=== PATIENT | female | born 1995 | race Caucasian/White ===

== ENCOUNTER 2020-06-11 09:48 | Emergency (ER) | payer OTHER ==
[~2020-06-11] VITALS: Ht 160 cm; Wt 57.5 kg
[2020-06-11 10:33] LABS: BASO % 0.4 % (0.0-1.0); EOS # 0.1 10^3/uL (0.0-0.5); EOS % 1.6 % (0.0-3.0); HEMATOCRIT 44.8 % (36.0-47.0); HEMOGLOBIN 14.3 g/dl (12.0-15.5); LYMPH # 1.6 10^3/uL (1.5-5.0); LYMPH % 30.6 % (24.0-44.0); MEAN CORPUSCULAR HEMOGLOBIN 28.1 pg (27.0-33.0); MEAN CORPUSCULAR HGB CONC 31.9 g/dl (32.0-36.5); MONO # 0.3 10^3/uL (0.0-0.8); MONO % 5.9 % (2.0-8.0); NEUTROPHILS # 3.1 10^3/uL (1.5-8.5); NEUTROPHILS % 61.1 % (36.0-66.0); PLATELET COUNT, AUTOMATED 169 10^3/uL (150-450); RED BLOOD COUNT 5.09 10^6/uL (4.00-5.40); WHITE BLOOD COUNT 5.1 10^3/uL (4.0-10.0)
--- NOTE | 2020-06-11 11:35 | REP ---
INDICATION: VAGINAL BLEEDING. COMPARISON: None. TECHNIQUE: Real-time sonographic evaluation of pelvis performed utilizing transabdominal and endovaginal technique. FINDINGS: Uterus measures 8.4 x 4.2 x 4.6 cm. Endometrial thickness is 11 mm. There is no endometrial fluid collection or gestational sac present. The ovaries are normal in size and echotexture, right ovary measuring 4.5 x 1.6 x 2.2 cm and left ovary 3.0 x 1.7 x 2.0 cm. There is no evidence of ovarian torsion with duplex Doppler evaluation. Along the margin of the left ovary there is a rounded nodular structure measuring 1.4 x 0.7 x 1.1 cm. Ectopic is a possibility. There is no other evidence of adnexal mass or free fluid. IMPRESSION: Endometrial thickness 11 mm with no fluid or gestational sac seen in the endometrial canal. Nodular structure left adnexa along the margin of the left ovary has a maximum diameter of 1.4 cm. I cannot exclude ectopic . Differential diagnosis would include very early intrauterine , missed AB, or ectopic . Suggest correlation with serial quantitative beta HCG values, and follow-up ultrasound if necessary. <Electronically signed by José Miguel Coles > 06/11/20 [id number]
[2020-06-11] MEDS ORDERED: RHOGAM 300 MCG (1500 IU) INJ (J2790) IM ONE (12:10)
[2020-06-11 12:19] LABS: APPEARANCE, URINE MANUAL TURBID (CLEAR); COLOR, URINE MANUAL PINK (YELLOW); PROTEIN, URINE MANUAL TRACE mg/dL (NEGATIVE)
[2020-06-11 12:20] LABS: BILIRUBIN, URINE MANUAL NEGATIVE (NEGATIVE); BLOOD URINE MANUAL POSITIVE (NEGATIVE); GLUCOSE, URINE (UA) MANUAL NEGATIVE (NEGATIVE); KETONE, URINE MANUAL 1+ mg/dL (NEGATIVE); LEUKOCYTE ESTERASE, URINE MAN POSITIVE (NEGATIVE); NITRITE, URINE MANUAL NEGATIVE (NEGATIVE); UROBILINOGEN, URINE MANUAL NORMAL (NORMAL)
[2020-06-11 12:29] LABS: BACTERIA, URINE NONE SEEN; HYALINE CAST, URINE NONE SEEN /lpf (0-1); MUCUS, URINE SMALL AMOUNT (NEGATIVE); RBC, URINE TNTC /hpf (0-3); SQUAMOUS EPITHELIAL CELL URINE SMALL AMOUNT /hpf (SMALL AMT)
[2020-06-11 13:12] VITALS: BP 109/73
== END 2020-06-11 13:23 | disposition home or self-care (01) ==
LOC: M ED 09:48
DX: O20.0 Threatened abortion (principal); O34.591 Maternal care for other abnormalities of gravid uterus, first trimester; O34.81 Maternal care for other abnormalities of pelvic organs, first trimester; Z3A.00 Weeks of gestation of pregnancy not specified
CPT/HCPCS: 76801; 76817; 81000; 84702; 85025; 86850; 86900; 86901; 87086; 93976; 96372; 99284; J2790